=== PATIENT | male | born 1965 | race African-American/Black ===

== ENCOUNTER 2016-12-29 09:20 | Emergency (ER) | payer OTHER ==
[~2016-12-29] VITALS: Ht 188 cm; Wt 106.6 kg
--- NOTE | 2016-12-29 09:42 | Emergency Room Report ---
History of Present Illness General Chief Complaint: General Complaint Source: Patient Present Illness HPI Patient is a 51-year-old male presented after increased low back pain and bilateral leg pain. The patient gradual onset of symptoms. He denies any fever. Patient denies any dysuria or constipation. He reports having pain to both legs. The patient was noted to have difficulty with movements. The patient stated that this had become worse over the past 3 days. He denies prior medical history. Allergies: Coded Allergies: No Known Allergies (Unverified , 12/29/16) Patient History Reviewed Nursing Documentation: PMH: Agreed, PSxH: Agreed Nursing Documentation-PM Past Medical History: No Stated History Review of Systems All Other Systems: negative except mentioned in HPI Physical Exam Vital Signs Date Time Temp Pulse Resp B/P (MAP) Pulse Ox O2 Delivery O2 Flow Rate FiO2 12/29/16 09:26 98.6 66 17 160/86 98 Room Air Sp02 EP Interpretation: reviewed, normal General Appearance: normal inspection, well appearing, no apparent distress, alert, GCS 15, non-toxic Head: normocephalic, atraumatic ENT: normal ENT inspection, hearing grossly normal, normal voice Neck: normal inspection, full range of motion, supple, no bony tend Respiratory: normal inspection, lungs clear, normal breath sounds, no respiratory distress, no retraction, no wheezing Cardiovascular #1: regular rate, rhythm, no edema Gastrointestinal: normal inspection, normal bowel sounds, non tender, soft, no guarding, no hernia Genitourinary: no CVA tenderness Musculoskeletal: normal inspection, back normal, normal range of motion Neurologic: normal inspection, alert, oriented x3, responsive, 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 Because of complexity of patient' s case laboratory testing and imaging studies were ordered.CT imaging of the lumbar spine showed degenerative changes without evident fracture. The patient was noted to have normal strength and tone. The patient is advised to have outpatient MRI if symptoms persisted. The patient is advised to follow up with primary care doctor in 1-2 days. Patient is advised to return if any worsening condition or if any changes in status that are concerning. Labs Test 12/29/16 09:44 Urine Color Pale yellow Urine Appearance Clear Urine pH 6 (4.5-8.0) Urine Specific [place] 1.015 (1.005-1.035) Urine Protein Negative (NEGATIVE) Urine Glucose (UA) Negative (NEGATIVE) Urine Ketones Negative (NEGATIVE) Urine Occult Blood 4+ (NEGATIVE) Urine Nitrite Negative (NEGATIVE) Urine Bilirubin Negative (NEGATIVE) Urine Urobilinogen Normal MG/DL (0.0-1.0) Urine Leukocyte Esterase Negative (NEGATIVE) Urine RBC 20-30 /HPF (0 - 0) Urine WBC 0-2 /HPF (0 - 0) Urine Squamous Epithelial Cells Occasional /LPF Urine Bacteria Occasional /HPF (NONE) Last Vital Signs Date Time Temp Pulse Resp B/P (MAP) Pulse Ox O2 Delivery O2 Flow Rate FiO2 12/29/16 09:26 98.6 66 17 160/86 98 Room Air Status: improved Disposition: HOME, SELF-CARE Condition: Stable Scripts Methocarbamol* (ROBAXIN-750*) 750 Mg Tablet 750 MG PO TID, #21 TAB 0 Refills Prov: Fabian Rivera 12/29/16 Fabian Rivera Dec 29, 2016 09:42
[2016-12-29] MEDS ORDERED: Ketorolac 60mg Inj IM ONE (09:45)
[2016-12-29 10:10] LABS: APPEARANCE,URINE CLEAR; KETONES,URINE NEGATIVE (NEGATIVE); LEUKOCYTE ESTERASE ,URINE NEGATIVE (NEGATIVE); NITRITE,URINE NEGATIVE (NEGATIVE); PH,URINE 6 (4.5-8.0); PROTEIN,URINE NEGATIVE (NEGATIVE); UROBILINOGEN,URINE NORMAL MG/DL (0.0-1.0)
[2016-12-29 10:28] LABS: BACTERIA,URINE OCCASIONAL /HPF; RBC,URINE 20-30 /HPF (0 - 0); SQUAMOUS EPITHELIAL CELL,UR OCCASIONAL /LPF (NONE/OCC); WBC,URINE 0-2 /HPF (0 - 0)
--- NOTE | 2016-12-29 10:43 | Diagnostic Imaging Report ---
Indication: PAIN Technique: Continuous helical scanning was performed without any contrast material from the diaphragms through the pelvis . Axial, sagittal, and coronal images were generated. Dose: Total Dose Length Product - DLP [address] Dose Index - CTDIvol(s) 17.93 mGy. Automated exposure control was utilized for dose reduction. Comparison: None Findings: Liver is unremarkable. The gallbladder is normal. The spleen is normal. The pancreas is unremarkable. Adrenal glands are normal. There is a small low-density lesion in the right kidney measuring 1.6 cm. There is also a low-density lesion in the renal sinus of the left kidney measuring 2.3 x 3.5 cm. No renal calculi are identified. The aorta and inferior vena cava are normal caliber. Retroperitoneum is free of adenopathy. The appendix is normal. The bowel is unremarkable. Bladder prostate, seminal vesicles are normal. There is degenerative change in the lumbar spine at L5-S1. 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 No evidence of urinary calculi. Low-density lesions in the kidneys bilaterally. These are difficult to characterize without contrast material. They could represent parapelvic cysts. Mild left hydronephrosis is not excluded. Otherwise negative. The CT scanner at [facility] is accredited by the [employer] and the scans are performed using protocols designed to limit radiation exposure to as low as reasonably achievable to attain images of sufficient resolution adequate for diagnostic evaluation.
[2016-12-29] MEDS ORDERED: ROBAXIN-750750 MG PO (11:34)
[2016-12-29] MEDS ORDERED: Morphine Sulfate 4mg/ml Inj IM ONE (11:45)
[2016-12-29] MEDS ORDERED: Morphine Sulfate 4mg/ml Inj IVP ONE (11:45)
[2016-12-29 11:52] VITALS: BP 142/87
== END 2016-12-29 11:54 | disposition home or self-care (01) ==
LOC: EMR 09:49
DX: M54.5 Low back pain (principal); M25.552 Pain in left hip; M25.551 Pain in right hip
CPT/HCPCS: 74176; 81003; 96372; 99283; J2270